=== PATIENT | female | born 1970 | race Caucasian/White ===

== ENCOUNTER → 2018-03-31 | Emergency (ER) | payer OTHER ==
[~2018-03-31] VITALS: Ht 160 cm; Wt 81.7 kg
[~2018-03-31] MED LIST: BUPROPION XL150 MG PO; NORCO 5-325 TA1 EACH PO; WELLBUTRIN SR100 MG PO
== END ==
LOC: ED 20:12
DX: S42.202A Unspecified fracture of upper end of left humerus, initial encounter for closed fracture (principal); W01.198A Fall on same level from slipping, tripping and stumbling with subsequent striking against other object, initial encounter; F32.9 Major depressive disorder, single episode, unspecified; F17.200 Nicotine dependence, unspecified, uncomplicated; Z79.899 Other long term (current) drug therapy
CPT/HCPCS: 73030; 99283